=== PATIENT | female | born 1950 | race Caucasian/White ===

== ENCOUNTER 2021-06-04 10:35 | Outpatient (CLI) | payer OTHER | END 2021-06-04 19:35 | disposition home or self-care (01) | LOC: SMI 10:35 | PROVIDERS: ATTEND Internal Medicine | DX: M19.011 Primary osteoarthritis, right shoulder (principal); M25.411 Effusion, right shoulder; M25.811 Other specified joint disorders, right shoulder; M89.311 Hypertrophy of bone, right shoulder; M25.511 Pain in right shoulder | CPT/HCPCS: 73221 ==